=== PATIENT | male | born 1940 | race Caucasian/White ===

== ENCOUNTER 2017-08-04 15:40 | Inpatient (IN) | payer MEDICARE, OTHER ==
[~2017-08-04] VITALS: Ht 182.9 cm; Wt 77.1 kg
[2017-08-04 15:48] VITALS: BP 125/79
[2017-08-04] MEDS ORDERED: Aspirin Baby 81mg ORAL ONE (16:00)
--- NOTE | 2017-08-04 16:19 | Diagnostic Imaging Report ---
Indication: Chest pain Comparison: 04/15/2012 A single view chest radiograph was obtained. Findings: Cardiomediastinal appearance is within normal limits for age. The aorta is prominent consistent with atherosclerotic disease. Pulmonary vascularity is appropriate. The diaphragmatic contour is smooth and costophrenic angles are sharp. No pleural effusions are identified. The bones are unremarkable. Impression: No acute findings
[2017-08-04] MEDS ORDERED: TRAZODONE HCL300 MG ORAL (16:47)
[2017-08-04] MEDS ORDERED: LANSOPRAZOLE30 M2 PO (16:47)
[2017-08-04] MEDS ORDERED: ADVAIR 250-501 EACH INH (16:47)
[2017-08-04] MEDS ORDERED: SPIRIVA18 MCG INH (16:47)
[2017-08-04] MEDS ORDERED: NITROSTAT0.3 MG SL (16:47)
[2017-08-04] MEDS ORDERED: RANEXA1000 MG ORAL ×2 (16:47→18:05)
[2017-08-04] MEDS ORDERED: PRO-AMATINE10 MG ORAL (16:47)
[2017-08-04] MEDS ORDERED: ASPIRIN-LOW81 MG ORAL (16:47)
[2017-08-04] MEDS ORDERED: XARELTO20 MG ORAL (16:47)
[2017-08-04] MEDS ORDERED: GABAPENTIN600 MG ORAL (16:47)
[2017-08-04] MEDS ORDERED: CRESTOR40 MG ORAL (16:47)
[2017-08-04] MEDS ORDERED: AMIODARONE HCL100 MG ORAL (16:47)
[2017-08-04] MEDS ORDERED: ZOFRAN4 MG ORAL (16:47)
[2017-08-04] MEDS ORDERED: ZETIA10 MG ORAL (16:47)
[2017-08-04 16:51] LABS: BASOPHILS % (AUTO) 1.1 % (0.0-2.0); EOSINOPHILS % (AUTO) 13.2 % (0.0-3.0); HEMATOCRIT 34.8 % (42.0-52.0); HEMOGLOBIN 11.9 G/DL (14.2-18.0); LYMPHOCYTES % (AUTO) 27.4 % (20.0-45.0); MEAN CORPUSCULAR VOLUME 94 FL (80-99); MONOCYTES % (AUTO) 10.3 % (1.0-10.0); NEUTROPHILS % (AUTO) 48.1 % (45.0-75.0); PLATELET COUNT 164 K/UL (150-450); RED BLOOD COUNT 3.68 M/UL (4.70-6.10); RED CELL DISTRIBUTION WIDTH 13.5 % (11.6-14.8)
[2017-08-04 17:01] LABS: INR 1.2 (0.9-1.1)
[2017-08-04 17:23] VITALS: BP 120/68
[2017-08-04 17:40] LABS: ANION GAP 9 mmol/L (5-15); BLOOD UREA NITROGEN 23 mg/dL (7-18); CALCIUM 8.3 MG/DL (8.5-10.1); CARBON DIOXIDE 25 MMOL/L (21-32); CHLORIDE 106 MMOL/L (98-107); CREATININE 1.5 MG/DL (0.55-1.30); SODIUM 140 MMOL/L (136-145)
[2017-08-04 17:54] LABS: ALANINE AMINOTRANSFERASE 21 U/L (12-78); ALBUMIN 2.7 G/DL (3.4-5.0); ALBUMIN/GLOBULIN RATIO 0.6 (1.0-2.7); ALKALINE PHOSPHATASE 107 U/L (46-116); ASPARTATE AMINO TRANSFERASE 28 U/L (15-37); BILIRUBIN,TOTAL 0.2 MG/DL (0.2-1.0); CKMB 0.7 NG/ML (0.0-3.6); CREATINE KINASE 24 U/L (26-308)
[2017-08-04] MEDS ORDERED: PROAIR HFA8.5 GM INH (18:11)
[2017-08-04] MEDS ORDERED: COLCRYS0.6 M1 PO (18:11)
[2017-08-04] MEDS ORDERED: ADVIL200 M2 ORAL (18:11)
[2017-08-04 19:00] VITALS: BP 126/72
--- NOTE | 2017-08-04 23:08 | Emergency Room Report ---
History of Present Illness General Chief Complaint: Chest Pain Source: Patient, EMS Present Illness Allergies: Coded Allergies: PENICILLINS (Verified Allergy, Unknown, 08/04/17) Patient History Past Medical History: see triage record, HTN, NC, CAD, CVA/TIA Social History: Denies: smoking, alcohol use, drug use Reviewed Nursing Documentation: PMH: Agreed; PSxH: Agreed Nursing Documentation-PMH Past Medical History: No History, Except For Hx Cardiac Problems: Yes Hx Hypertension: Yes Hx Cerebrovascular Accident: Yes Review of Systems All Other Systems: negative except mentioned in HPI Physical Exam Vital Signs Date Time Temp Pulse Resp B/P (MAP) Pulse Ox O2 Delivery O2 Flow Rate FiO2 08/04/17 15:38 98.4 96 16 161/91 100 Room Air 98.4 Sp02 EP Interpretation: reviewed, normal General Appearance: no apparent distress, alert, GCS 15, non-toxic Head: normocephalic, atraumatic Eyes: bilateral eye normal inspection, bilateral eye PERRL ENT: hearing grossly normal, normal pharynx, no angioedema, normal voice Neck: full range of motion, supple/symm/no masses Respiratory: chest non-tender, lungs clear, normal breath sounds, no respiratory distress, no retraction, no accessory muscle use, speaking full sentences Cardiovascular #1: regular rate, rhythm, no edema Gastrointestinal: normal bowel sounds, non tender, soft, non-distended, no guarding, no rebound Rectal: deferred Musculoskeletal: back normal, gait/station normal, normal range of motion, non- tender Neurologic: alert, oriented x3, responsive, motor strength/tone normal, sensory intact, speech normal Psychiatric: judgement/insight normal, memory normal, mood/affect normal, no suicidal/homicidal ideation Skin: normal color, no rash, warm/dry, well hydrated Medical Decision Making Diagnostic Impression: Primary Impression: Chest pain Laboratory Tests Test 08/04/17 16:00 08/04/17 16:33 08/04/17 17:15 White Blood Count 7.0 K/UL (4.8-10.8) Red Blood Count 3.68 M/UL (4.70-6.10) L Hemoglobin 11.9 G/DL (14.2-18.0) L Hematocrit 34.8 % (42.0-52.0) L Mean Corpuscular Volume 94 FL (80-99) Mean Corpuscular Hemoglobin 32.3 PG (27.0-31.0) H Mean Corpuscular Hemoglobin Concent 34.2 G/DL (32.0-36.0) Red Cell Distribution Width 13.5 % (11.6-14.8) Platelet Count 164 K/UL (150-450) Mean Platelet Volume 7.2 FL (6.5-10.1) Neutrophils (%) (Auto) 48.1 % (45.0-75.0) Lymphocytes (%) (Auto) 27.4 % (20.0-45.0) Monocytes (%) (Auto) 10.3 % (1.0-10.0) H Eosinophils (%) (Auto) 13.2 % (0.0-3.0) H Basophils (%) (Auto) 1.1 % (0.0-2.0) Troponin I 0.000 ng/mL (0.000-0.056) Prothrombin Time 13.0 SEC (9.30-11.50) H Prothrombin Time INR 1.2 (0.9-1.1) H PTT 36 SEC (23-33) H Sodium Level 140 MMOL/L (136-145) Potassium Level 4.0 MMOL/L (3.5-5.1) Chloride Level 106 MMOL/L (98-107) Carbon Dioxide Level 25 MMOL/L (21-32) Anion Gap 9 mmol/L (5-15) Blood Urea Nitrogen 23 mg/dL (7-18) H Creatinine 1.5 MG/DL (0.55-1.30) H Estimate Glomerular Filtration Rate mL/min (>60) Glucose Level 135 MG/DL (74-106) H Calcium Level 8.3 MG/DL (8.5-10.1) L Total Bilirubin 0.2 MG/DL (0.2-1.0) Aspartate Amino Transferase (AST) 28 U/L (15-37) Alanine Aminotransferase (ALT) 21 U/L (12-78) Alkaline Phosphatase 107 U/L (46-116) Total Creatine Kinase 24 U/L (26-308) L Creatine Kinase MB 0.7 NG/ML (0.0-3.6) Creatine Kinase MB Relative Index 2.9 Total Protein 7.0 G/DL (6.4-8.2) Albumin 2.7 G/DL (3.4-5.0) L Globulin 4.3 g/dL Albumin/Globulin Ratio 0.6 (1.0-2.7) L EKG Diagnostic Results Rate: normal Rhythm: NSR ST Segments: no acute changes Rhythm Strip Diag. Results EP Interpretation: yes Rate: 70's Rhythm: NSR, no PVC's, no ectopy Chest X-Ray Diagnostic Results Chest X-Ray Diagnostic Results : Chest X-Ray Ordered: Yes # of Views/Limited/Complete: 1 View Indication: Chest Pain EP Interpretation: Yes Interpretation: no consolidation, no effusion, no pneumothorax, no acute cardiopulmonary disease Impression: No acute disease Electronically Signed by: Hayden Last Vital Signs Date Time Temp Pulse Resp B/P (MAP) Pulse Ox O2 Delivery O2 Flow Rate FiO2 08/04/17 19:00 97.9 80 18 126/72 100 Room Air 97.9 Disposition: ADMITTED INPATIENT Condition: Unknown Referrals: Andreas Mosquera MD (PCP) JAYMIE ROY D.O. August 04, 2017 23:08
--- NOTE | 2017-08-06 12:40 | Discharge Summary ---
Discharge Summary Discharge Summary _ DATE OF ADMISSION: 08/04/2017 DATE OF DISCHARGE: 08/04/2017. Patient signed AGAINST MEDICAL ADVICE REASON FOR ADMISSION: 77 years old male with past medical history significant for hypertension, myocardial infarction, coronary artery disease, CVA ,presented to emergency department complaining of chest pain. Upon evaluation troponin was negative. Chest x-ray revealed no acute cardiopulmonary pathology. EKG revealed normal sinus rhythm, no acute ischemic changes . Renal parameters revealed BUN 23, creatinine 1.5, mild anemia with hemoglobin 11.9 and hematocrit 34.9, no leukocytosis, glucose 135, pulse oximetry was stable on room air. Blood pressure was elevated 161/91. Patient was given aspirin in ED. Patient was admitted to telemetry floor with diagnosis of chest pain, rule out acute coronary syndrome HOSPITAL COURSE: Patient admitted to telemetry floor. Serial troponin along with echocardiogram and repeated EKG were ordered. Veterinary Toxicologist consult was requested. Patient started on daily aspirin. Blood pressures stabilized. Pain management provided as needed. Pulse oximetry was stable on room air. No need for supplemental oxygen. No shortness of breath. Chest pain resolved. Patient decided to leave AGAINST MEDICAL ADVICE . The risks and consequences of signing against medical advice were discussed with the patient. Patient verbalized understanding, signed the form and was picked up by his caregiver. FINAL DIAGNOSES: Chest pain possible acute coronary syndrome I have been assigned to dictate discharge summary for this account. I was not involved in the patient's management. Nida Cuevas NP August 06, 2017 12:40
--- NOTE | 2017-08-06 17:10 | Cardiology Report ---
APPROVED REPORT EKG Measurement Heart [id number] Normal sinus rhythm Abnormal QRS-T angle, consider primary T wave abnormality Prolonged QT Abnormal ECG
== END 2017-08-04 22:49 | disposition left against medical advice (07) | DRG 311 ==
LOC: EDBD 15:40 → EMR 16:56 → 2E 16:58 → EDBEDREQ 17:02 → 2E 18:01
DX: I24.9 Acute ischemic heart disease, unspecified (principal); I10 Essential (primary) hypertension; I25.2 Old myocardial infarction; I25.10 Atherosclerotic heart disease of native coronary artery without angina pectoris; Z88.0 Allergy status to penicillin; Z86.73 Personal history of transient ischemic attack (TIA), and cerebral infarction without residual deficits; Z53.21 Procedure and treatment not carried out due to patient leaving prior to being seen by health care provider
CPT/HCPCS: 36415; 71045; 80053; 82550; 82553; 84484; 85025; 85610; 85730; 93005; 99285

== ENCOUNTER 2019-08-03 05:42 | Day surgery (SDC) | payer MEDICARE, BC ==
--- NOTE | 2019-08-02 17:34 | Pre-Procedure Note/Attestation ---
Pre-Procedure Note/Attestation Complete Prior to Procedure Planned Procedure: left Procedure Narrative: Removal of skin cancer on back with frozen section clearance and multilayer reconstruction. Indications for Procedure Pre-Operative Diagnosis: Skin cancer of back Attestation I attest that I discussed the nature of the procedure; its benefits; risks and complications; and alternatives (and the risks and benefits of such alternatives ), prior to the procedure, with the patient (or the patient's legal sales representative girls' apparel). I attest that, if there was a reasonable possibility of needing a blood transfusion, the patient (or the patient's legal sales representative girls' apparel) was given the [facility] standardized written summary, pursuant to the Dusty Laura Blood Safety Act ([place] Health and Safety Code # 1645, as amended). I attest that I re-evaluated the patient just prior to the surgery and that there has been no change in the patient's H&P provided by PCP and negative covid -[address] Alba. Pt. has been sequestered since Covid-19 testing on Friday. Phill Murphy MD August 02, 2019 17:34
[~2019-08-03] VITALS: Ht 185.4 cm; Wt 83.5 kg
[2019-08-03] VITALS (9 sets, daily range): BP systolic 103–137; BP diastolic 62–80
[~2019-08-03 05:42] MED LIST: ADVAIR 250-501 EACH INH; ADVIL200 M2 ORAL; AMIODARONE HCL100 MG ORAL; ASPIRIN-LOW81 MG ORAL; COLCRYS0.6 M1 PO; CRESTOR40 MG ORAL; GABAPENTIN600 MG ORAL; IPRATROPIU0.2 MG/1 M HHN; LANSOPRAZOLE30 M2 PO; NITROSTAT0.3 MG SL; PREDNISONE10 MG ORAL; PRO-AMATINE10 MG ORAL; PROAIR HFA8.5 GM INH; RANEXA1000 MG ORAL; SPIRIVA18 MCG INH; TRAZODONE HCL300 MG ORAL; XARELTO20 MG ORAL; ZETIA10 MG ORAL; ZOFRAN4 MG ORAL
[2019-08-03] MEDS ORDERED: Bacitracin Oint 15gm Tube TOPIC ONE (06:48)
[2019-08-03] MEDS ORDERED: Lidocaine 1% 10mg/ml/Epi 0.005mg/ml 30ml vial INJ ONE (06:49)
[2019-08-03] MEDS ORDERED: Bupivacaine w/Epi 0.5% 30ml Vial INJ ONE (06:49)
--- NOTE | 2019-08-03 06:49 | Anethesia Preoperative Eval ---
Anesthesia Pre-op PMH/ROS General Date of Evaluation: August 03, 2019 Anesthesiologist: Dionte ASA Score: ASA 4 Mallampati Score Class I : Soft palate, uvula, fauces, pillars visible Class II: Soft palate, uvula, fauces visible Class III: Soft palate, base of uvula visible Class IV: Only hard plate visible Mallampati Classification: Class III Surgeon: Katherine Diagnosis: Right flank skin cancer Surgical Procedure: Excision right flank skin cancer Anesthesia History: none Family History: no anesthesia problems Allergies: Coded Allergies: PENICILLINS (Verified Allergy, Unknown, 08/04/17) Medications: see eMAR Patient NPO?: Yes NPO Date: August 03, 2019 NPO Time: 00:00 Past Medical History Cardiovascular: Reports: HTN, CAD, other - CHF, h/o pericardial tamponade, HLD ; Denies: SC, valve dz, arrhythmia Pulmonary: Reports: COPD; Denies: asthma, BRENDA, other Gastrointestinal/Genitourinary: Reports: GERD, other - Recent h/o bladder cancer-s/p resection, BPH; Denies: CRI, ESRD Neurologic/Psychiatric: Reports: CVA; Denies: dementia, depression/anxiety, TIA, other Endocrine: Denies: DM, hypothyroidism, steroids, other HEENT: Denies: cataract (L), cataract (R), glaucoma, [place] (L), [place] (R), other Hematology/Immune: Reports: anemia; Denies: DVT, bleeding disorder, other Musculoskeletal/Integumentary: Reports: OA; Denies: RA, DJD, DDD, edema, other Anesthesia Pre-op Phys. Exam Physician Exam Last Vital Signs Date Time Temp Pulse Resp B/P (MAP) Pulse Ox O2 Delivery O2 Flow Rate FiO2 08/03/19 06:25 97.1 70 20 137/80 96 Room Air Constitutional: NAD Cardiovascular: RRR Respiratory: other - diminished breath sounds bilaterally Airway Exam Mallampati Score: Class III MO: limited ROM: limited Anesthesia Pre-op A/P Labs see chart Studies Pre-op Studies: EKG - 1st degree AV block, rbbb Risk Assessment & Plan Assessment: ASA III Plan: MAC Status Change Before Surgery: No Pre-Antibiotics Drug: Clindamycin 600mg Given Within 1 Hr of Incision: Yes Carey Rapp MD August 03, 2019 06:49
[2019-08-03] MEDS ORDERED: Clindamycin 600mg 50 ML IV ONE (06:51)
[2019-08-03] MEDS ORDERED: Sterile Water Irrig 1000ml IRRIG ONE (07:00)
[2019-08-03] MEDS ORDERED: NS Irrig 1000ml ONE (07:00)
[2019-08-03] MEDS ORDERED: LR 1000ml ONE (07:00)
[2019-08-03] MEDS ORDERED: ceFAZolin sod 1 GM in D5W 55 ML IV ONE (07:00)
[2019-08-03] MEDS ORDERED: Hydrocortisone 100mg Inj ONE (07:14)
--- NOTE | 2019-08-03 07:18 | Discharge Instructions ---
Discharge Instructions Discharge Instructions Follow up with: Next week at Dr. Murphy's office. pt has appt already. Diet: regular Resume Normal Activity?: Yes Follow Up Orders Pt has his antibiotics and meds already Ceftin-has tolerated in the past-has Rx already [place]-he has Rx already Return to Work/School on: Aug 24, 2019 For Surgical Patients Dressing Care: keep dry and clean May shower: No - Sponge bath Contact your physician for: pain, redness, swelling For Congestive Heart Failure Reminder Report to your physician any weight gain of 5 pounds or more in one week. Phill Murphy MD August 03, 2019 07:18
[2019-08-03] MEDS ORDERED: Lidocaine 1% MPF 10mg/ml 5ml ONE (07:19)
[2019-08-03] MEDS ORDERED: fentaNYL 100 mcg/2 mL IV ONE (07:19)
[2019-08-03] MEDS ORDERED: Midazolam 2mg/2ml Inj ONE (07:19)
--- NOTE | 2019-08-03 07:20 | Brief Operative Note ---
Immediate Post Operative Note Operative Note Chief Complaint: Skin cancer of back Pre-op Diagnosis: Skin cancer of back Procedure: 1. Excision of skin cancer back 2. Frozen section clearance 3. Multilayer advancement closure Post-op Diagnosis: same as pre-op Surgeon: Dr. Phill Murphy Process Automation Engineer: none Additional Surgeons: none Anesthesiologist: Dr. Rapp Specimen: yes - right flank with frozen section margins Complications: none Condition: stable Fluids: D5LR Estimated Blood Loss: volume - 50 cc Drains: none Packing: none Implant(s) used?: No Phill Murphy MD August 03, 2019 07:20
[2019-08-03] MEDS ORDERED: DiphenhydrAMINE 50mg/ml Inj ONE (07:21)
[2019-08-03] MEDS ORDERED: florinef PO (07:31)
[2019-08-03] MEDS ORDERED: SPIRONOLACTONE25 MG ORAL (07:32)
[2019-08-03] MEDS ORDERED: FLOMAX0.4 MG ORAL (07:33)
[2019-08-03] MEDS ORDERED: ASPIR 8181 MG ORAL (07:33)
[2019-08-03] MEDS ORDERED: LR 1000ml 1,000 ML IVLG SCH (07:36)
[2019-08-03] MEDS ORDERED: DiphenhydrAMINE 50mg/ml Inj IVP PRN (07:45)
[2019-08-03] MEDS ORDERED: fentaNYL 100 mcg/2 mL IV PRN (07:45)
[2019-08-03] MEDS ORDERED: HYDROmorphone 1mg/ml Carpuject SUBQ PRN (08:45)
[2019-08-03] MEDS ORDERED: DiphenhydrAMINE 25mg Tab ORAL PRN (08:45)
[2019-08-03] MEDS ORDERED: HYDROcodone/Acetamin 5/325 tab ORAL PRN (08:45)
[2019-08-03] MEDS ORDERED: Metoclopramide 10mg/2ml Inj IVP PRN (08:45)
--- NOTE | 2019-08-03 08:49 | Immediate Post-Op Evaluation ---
Immediate Post-Op Evalulation Immediate Post-Op Evalulation Procedure: Right flank mass excision Date of Evaluation: August 03, 2019 Time of Evaluation: 08:49 IV Fluids: 500 Blood Products: 0 Estimated Blood Loss: 50 Urinary Output: 0 Blood Pressure Systolic: 122 Blood Pressure Diastolic: 68 Pulse Rate: 54 Respiratory Rate: 16 O2 Sat by Pulse Oximetry: 100 Temperature (Fahrenheit): 98.4 Pain Score (1-10): 0 Nausea: No Vomiting: No Complications 0 Patient Status: awake, reacts, patent, none Hydration Status: adequate Drug: Clinda 600mg Given Within 1 Hr of Incision: Yes Carey Rapp MD August 03, 2019 08:48
--- NOTE | 2019-08-03 08:49 | 48 Hour Post Anesthesia Eval ---
Post Anesthesia Evaluation Procedure: Right flank mass excision Date of Evaluation: August 03, 2019 Airway: patent Nausea: No Vomiting: No Pain Intensity: 0 Hydration Status: adequate Cardiopulmonary Status: at baseline Mental Status/LOC: patient returned to baseline Post-Anesthesia Complications: 0 Follow-up care needed: ready to discharge Carey Rapp MD August 03, 2019 08:49
[2019-08-03] MEDS ORDERED: ACETAMINOPHEN500 MG ORAL (14:55)
[2019-08-03] MEDS ORDERED: MULTIVITAMINS1 EAC2 ORAL (14:56)
--- NOTE | 2019-08-03 17:44 | Operative Note - Dictated ---
DATE OF OPERATION: 08/03/2019 SURGEON: Phill Murphy MD. SKIN TOGGLER: None. ANESTHESIOLOGIST: Carey Rapp MD. ANESTHESIA: IV sedation as well as 30 mL 50:50 mixture 1% lidocaine, 1000 epinephrine and Marcaine 0.5% with 1:200,000 epinephrine. 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 PREOPERATIVE DIAGNOSIS: Squamous cell carcinoma. POSTOPERATIVE DIAGNOSIS: Squamous cell carcinoma. FINDINGS: Squamous cell carcinoma. PROCEDURE: 1. Excision of squamous cell carcinoma 16 x 8 cm. 2. Frozen section clearance. 3. Multilayer advancement flap closure. TECHNIQUE: Patient prepped and draped in usual manner via IV sedation. He was injected with the aforementioned lidocaine, Marcaine, and epinephrine mixture. This was after prepping. I then proceeded to excise the lesion and then a rim around the lesion. The excision was done with a 15 blade. This was placed on a towel labeled 12, 3, 6, and 9. The specimen was placed on this along with 2 strips from 12, 3, 6, and then 12, 9, 6. This was then given to the pathologist who evaluated the margins and said they were all clear. I undermined 360 degrees. Bleeding controlled with electrocautery. Cleaned with Betadine a couple times during closure. I then brought the edges together advancement flap with 4-0 Vicryl 10 sutures deep, 8 neck superficial layer. Then, a running horizontal mattress with a 5-0 Prolene. The upper third one set tied off, lower third one set tied off, and then the middle third. Glue and Steri-Strips were placed over this. Telfa rolled-up, 4x4s, and then a Tegaderm dressing to apply some pressure. No drain was used. ESTIMATED BLOOD LOSS: 50 mL. COMPLICATIONS: None. DRAINS: None. Patient is alert, awake, and stable in the operating room prior to transfer to the recovery room. One hour later, he was stable in the postop area. Dressing clean and dry. Phill Murphy M.D. DR: MARIA VICTORIA JOB#: [id number] CC: MICHAEL
== END 2019-08-03 10:00 | disposition home or self-care (01) ==
LOC: SUR 05:42
DX: C44.529 Squamous cell carcinoma of skin of other part of trunk (principal); Z88.0 Allergy status to penicillin; I11.0 Hypertensive heart disease with heart failure; I50.9 Heart failure, unspecified; K21.9 Gastro-esophageal reflux disease without esophagitis; Z86.73 Personal history of transient ischemic attack (TIA), and cerebral infarction without residual deficits; Z85.51 Personal history of malignant neoplasm of bladder; J44.9 Chronic obstructive pulmonary disease, unspecified; E78.5 Hyperlipidemia, unspecified; M19.90 Unspecified osteoarthritis, unspecified site; I44.0 Atrioventricular block, first degree; I45.10 Unspecified right bundle-branch block
CPT/HCPCS: 14001; 93005; 94003; J1200; J1720; J2250; J2704; J3010; J7120; 94150; S0077